=== PATIENT | male | born 1960 | race Caucasian/White ===

== ENCOUNTER → 2016-02-17 | Outpatient (REF) ==
--- NOTE | 2016-02-17 12:50 | REP ---
LUMBAR SPINE THREE VIEWS: HISTORY: Degenerative disc disease. There is no acute fracture or subluxation. The intervertebral discs are decreased in height consistent with disc degeneration. Osteophytes are present on L2 and 5. There is loss of the normal lordotic curve. There is minimal scoliosis convex to the left. IMPRESSION: Degenerative change as described above. Signed by David Calderon MD 02/17/2016 12:53 P
== END | disposition home or self-care (01) ==
LOC: M SMT 10:35
PROVIDERS: ATTEND Internal Medicine
DX: Z02.71 Encounter for disability determination (principal)

== ENCOUNTER → 2017-10-26 | Outpatient (REF) | LOC: M SMT 12:38 | DX: Z00.00 Encounter for general adult medical examination without abnormal findings (principal) ==